=== PATIENT | female | born 1950 | race Caucasian/White ===

== ENCOUNTER → 2016-04-10 | Outpatient (CLI) | payer OTHER, MEDICARE ==
[~2016-04-10] MED LIST: GADOBUTROL 10 ML VIAL IVP ONE
[2016-04-10 08:55] LABS: CREATININE 0.9 mg/dL (0.6-1.0); GLOMERULAR FILTRATION RATE > 60
--- NOTE | 2016-04-10 18:28 | MR ---
MRI Cervical Spine (Without and With Contrast) History: Cervicalgia, neck pain, history of breast cancer, M54.2. Technique: Sagittal T1, T2 and axial T1, T2 MR sequences of the cervical spine without contrast. Post contrast sagittal and axial T1-weighted sequences obtained with the uneventful intravenous administra tion of 5 mL Gadavist contrast. Findings: No evidence of cervical compression fractures. No destructive osseous lesions of the cerv ical spine. No craniocervical stenosis. Cerebellar tonsils are in normal position. Cervical spinal c ord demonstrates normal signal without cord edema or myelomalacia. C2-C3: No disk herniation or stenosis. C3-C4: Severe left facet arthropathy and moderate right facet arthropathy with mild degenerative disk disease, minimal dorsal disk/osteophyte complex, and degenerative grade 1 anterolisthesis resulting in mild to moderate bilateral neural foraminal stenosis without central canal stenosis. C4-C5: Mild degenerative disk disease with dorsal disk/osteophyte complex, severe left facet arthropa thy, mild right facet arthropathy, dorsal disk/osteophyte complex and bilateral uncovertebral osteoph ytes, left greater than right, resulting in mild central canal stenosis, moderate to severe left neur al foraminal stenosis and mild to moderate right neural foraminal stenosis. C5-C6: Moderate degenerative disk disease with moderate loss of disk height, dorsal disk/osteophyte c omplex, bilateral uncovertebral osteophytes and moderate bilateral facet arthropathy, left greater th an right, resulting in moderate central canal stenosis with mild cord compression, and moderate to se filiberto bilateral neural foraminal stenosis. C6-C7: Moderate degenerative disk disease with dorsal disk/osteophyte complex and bilateral uncoverte bral osteophytes, resulting in mild central canal stenosis and mild to moderate bilateral neural fora sandra stenosis, left worse than right. C7-T1: Mild bilateral facet arthropathy resulting in mild to moderate bilateral neural foraminal sten osis without central canal stenosis. No enhancing lesions, diskitis, or osteomyelitis. No evidence of enhancing cervical spinal cord lesio ns or leptomeningeal carcinomatosis. No evidence of enhancing vertebral body masses or paraspinal mas ses Impression: 1. No evidence of enhancing metastasis to the cervical spine or cervical spinal cord. 2. Multilevel mild to moderate degenerative disk disease, worse at C5-C6 and C6-C7, and variable bila teral facet arthropathy, resulting in mild to moderate central canal stenosis at C5-C6, and multileve l variable bilateral neural foraminal stenosis, worst at C3-C4, C4-C5, and C5-C6. 3. C5-C6: Moderate central canal stenosis and mild cord compression, secondary to moderate degenerati ve disk disease, degenerative anterolisthesis, bilateral facet arthropathy, also resulting in moderat e to severe bilateral neural foraminal stenosis. 4. No cord edema, myelomalacia, or enhancing cord lesions.
== END ==
LOC: FIMAGING 07:57
PROVIDERS: ATTEND Physician Assistant
DX: M50.322 Other cervical disc degeneration at C5-C6 level (principal); M50.323 Other cervical disc degeneration at C6-C7 level; M48.02 Spinal stenosis, cervical region; M47.892 Other spondylosis, cervical region; M46.92 Unspecified inflammatory spondylopathy, cervical region; Z85.3 Personal history of malignant neoplasm of breast
CPT/HCPCS: 72156; A9585

== ENCOUNTER → 2017-01-08 | Outpatient (CLI) | payer OTHER, MEDICARE | LOC: FIMAGING 14:19 | PROVIDERS: ATTEND Internal Medicine Geriatric Medicine | DX: Z12.31 Encounter for screening mammogram for malignant neoplasm of breast (principal); Z85.3 Personal history of malignant neoplasm of breast | CPT/HCPCS: G0202-52 ==

== ENCOUNTER → 2017-01-16 | Outpatient (CLI) | payer OTHER, MEDICARE | LOC: FIMAGING 11:37 | PROVIDERS: ATTEND Internal Medicine Hematology & Oncology | DX: Z12.39 Encounter for other screening for malignant neoplasm of breast (principal); R92.0 Mammographic microcalcification found on diagnostic imaging of breast | CPT/HCPCS: G0206 ==

== ENCOUNTER → 2017-01-22 | Day surgery (SDC) | payer OTHER, MEDICARE ==
[~2017-01-22] MED LIST changes: +BUPIVACAINE 0.5% 10 ML SDV ONE; -GADOBUTROL 10 ML VIAL IVP ONE; +LIDOCAINE 1% 300 MG/30 ML SDV ONE; +THROMBIN (BOVINE) 5,000 UNIT VIAL TP ONE
== END | disposition home or self-care (01) ==
LOC: FIMAGING 07:06
PROVIDERS: ATTEND Internal Medicine Hematology & Oncology
PROC: 0HBU3ZX Excision of Left Breast, Percutaneous Approach, Diagnostic (ICD-10-PCS; principal; 2017-01-22)
DX: R92.8 Other abnormal and inconclusive findings on diagnostic imaging of breast (principal)
CPT/HCPCS: G0206

== ENCOUNTER → 2017-02-16 | Outpatient (CLI) | payer OTHER, MEDICARE | LOC: FIMAGING 08:38 | PROVIDERS: ATTEND Internal Medicine Geriatric Medicine | DX: Z13.820 Encounter for screening for osteoporosis (principal); M81.8 Other osteoporosis without current pathological fracture ==

== ENCOUNTER 2017-03-02 09:29 | Inpatient (IN) | payer OTHER, MEDICARE ==
[~2017-03-02 09:29] MED LIST changes: +ALBUTEROL 200 PUFFS/18 GM MDI IH PRN; -BUPIVACAINE 0.5% 10 ML SDV ONE; -LIDOCAINE 1% 300 MG/30 ML SDV ONE; -THROMBIN (BOVINE) 5,000 UNIT VIAL TP ONE; +VANCOMYCIN PHARMACY TO DOSE MISC ONE
[2017-03-02] MEDS: LR 1,000 ML IV SCH ×2 (10:38→20:19)
[2017-03-02] MEDS ORDERED: VANCOMYCIN 1 GM in D5W 250 ML IV ONE (11:00)
[2017-03-02] MEDS ORDERED: DEXAMETHASONE 4 MG/ML VIAL IVP ONE (11:00)
[2017-03-02] MEDS ORDERED: DEXAMETHASONE 4 MG/ML VIAL ONE ×2 (11:05→15:38)
[2017-03-02] MEDS ORDERED: GENTAMICIN SULFATE 80 MG/2 ML VIAL ONE ×2 (11:30→16:16)
[2017-03-02] MEDS ORDERED: METHYLENE BLUE 0.5% 50 MG/10 ML AMP ONE ×2 (11:30→15:06)
[2017-03-02] MEDS ORDERED: BACITRACIN ZINC 14.2 GM OINTTUBE TP ONE (11:31)
[2017-03-02] MEDS ORDERED: BACITRACIN 50,000 UNITS/10 ML SYR IRR ONE ×2 (11:31→16:16)
[2017-03-02] MEDS ORDERED: ceFAZolin 1 GM/5 ML SYR ONE (11:32)
[2017-03-02] MEDS ORDERED: FAMOTIDINE 20 MG/NACL 50 ML IV ONE (12:00)
[2017-03-02] MEDS ORDERED: MIDAZOLAM 2 MG/2 ML VIAL IVP ONE (14:38)
--- NOTE | 2017-03-02 14:41 | PDANEPAE ---
ANE History of Present Illness L mastectomy and recon ANE Past Medical History - Cardiovascular History Hx Hypertension: Yes Hx Arrhythmias: No Hx Chest Pain: No Hx Coronary Artery / Peripheral Vascular Disease: No Hx CHF / Valvular Disease: No Hx Palpitations: No Cardiovascular History Comment: PCP MONITORS BP - Pulmonary History Hx COPD: No Hx Asthma/Reactive Airway Disease: Yes Hx Recent Upper Respiratory Infection: No Hx Oxygen in Use at Home: No Hx Sleep Apnea: No Sleep Apnea Screening Result - Last Documented: Negative Pulmonary History Comment: ASTHMA- USES INHALER, INSTRUCTED PT TO BRING TO HOSPITAL - Neurologic History Hx Cerebrovascular Accident: No Hx Seizures: No Hx Dementia: No - Endocrine History Hx Diabetes: No - Renal History Hx Renal Disorders: No - Liver History Hx Hepatic Disorders: No - Neurological & Psychiatric Hx Hx Neurological and Psychiatric Disorders: No - Cancer History Hx Cancer: Yes Cancer History Comment: BREAST CA X2. SMALL MELANOMA 1988 - Congenital Disorder History Hx Congenital Disorders: No - GI History Hx Gastrointestinal Disorders: Yes Gastrointestinal History Comment: DIVERTICULITIS. HX OF COLECTOMY. REFLUX. TENDS TO BE MORE ON THE SIDE OF DIARRHEA THAN CONSTIPATION - Other Health History Other Health History: WEARS GLASSES - Chronic Pain History Chronic Pain: Yes (ARTHRITIS TO NECK) - Surgical History Prior Surgeries: 2011 TRIGGER THUMB SURGERY- RIGHT. 2010 BREAST RECONSTRUCTION , PORT REMOVED. RIGHT MASTECTOMY 2008. COLECTOMY AND ANTONETTE 2008. 1988. LATERAL RELEASE RIGHT KNEE 1978. 1968 DEVIATED SEPTUM. 1958 TONSILLECTOMY ANE Review of Systems Review of systems is: negative Review of Systems: - Exercise capacity Exercise capacity: >=4 METS METS (RN): 4 METS ANE Patient History - Allergies Allergies/Adverse Reactions: codeine [Codeine] Allergy (Intermediate, Verified 08/01/10 09:33) NAUSEA cephalexin [From Keflex] Allergy (Verified 02/05/17 15:26) Rash silver [From Tegaderm AG Mesh] Allergy (Verified 02/05/17 15:27) ITCHY RED RASH - Home Medications Home medications: home medication list seen and reviewed Home Medications: Albuterol [Ventolin Hfa Inhaler] 1 - 2 puffs IH Q4 PRN 02/05/17 [Last Taken 07:00] Ascorbic Acid [Vitamin C 500 mg (*)] 500 mg PO DAILY 02/05/17 [Last Taken ] Calcium Carb W/Vit D [Calcium Carb W/Vit D 500/200 (*)] 500 mg PO DAILY [Last Taken 02/16/17] Glucosam/Chondr/Collagn/Hyalur [Glucosamine & Chondroitin Cap] 2 each PO DAILY 02/05/17 [Last Taken 02/16/17] Herbals/Supplements -Info Only 1 ea PO DAILY 02/05/17 [Last Taken 02/16/17] Losartan Potassium [Cozaar 25 mg (*)] 25 mg PO HS 02/05/17 [Last Taken Unknown] [place]cadia-3 Fatty Acids [Fish Oil 1000 mg (*)] 1,000 mg PO DAILY 02/05/17 [Last Taken 02/16/17] Omeprazole Magnesium [Prilosec Otc] 20 mg PO DAILY 02/05/17 [Last Taken 07:00] Zinc Gluconate [Zinc Chelated 50mg (*)] 50 mg PO Q2D 02/05/17 [Last Taken ] - NPO status NPO Since - Liquids (Date): 03/02/17 NPO Since - Liquids (Time): 07:45 NPO Since - Solids (Date): 03/01/17 NPO Since - Solids (Time): 19:00 - Anes Hx Anes Hx: no prior problems - Smoking Hx Smoking Status: Never smoked - Family Anes Hx Family Anes Hx: none Family Hx Anesthesia Complications: NONE ANE Labs/Vital Signs - Vital Signs Blood Pressure: 152/86 Heart Rate: 64 Respiratory Rate: 16 O2 Sat (%): 93 Height: 162.56 cm Weight: 54.431 kg ANE Physical Exam - Airway Neck exam: FROM Mallampati Score: Class 1 Mouth exam: normal dental/mouth exam - Pulmonary Pulmonary: no respiratory distress - Cardiovascular Cardiovascular: regular rate and rhythym ANE Anesthesia Plan Anesthesia Plan: general endotracheal anesthesia
--- NOTE | 2017-03-02 15:20 | PDHPUP ---
History & Physical Update H&P update statement: This history and physical update is based on an assessment of the patient which was completed after admission or registration (within 24 hours), but prior to the surgery/procedure. H&P update: H&P reviewed & patient examined (delay in surgery due to Nuclear Medicine), no change in patient's condition since H&P completed
[2017-03-02] MEDS ORDERED: ONDANSETRON 4 MG/2 ML VIAL ONE (15:38)
[2017-03-02] MEDS ORDERED: HYDROmorphONE/DILAUDID 2 MG/ML INJ ONE (15:38)
[2017-03-02] MEDS ORDERED: fentaNYL 100 MCG/2 ML INJ ONE ×2 (15:38→18:47)
[2017-03-02] MEDS ORDERED: ROCURONIUM 50 MG/5 ML VIAL ONE ×2 (15:38→17:15)
[2017-03-02] MEDS ORDERED: LIDOCAINE 2% 100 MG/5 ML SYR ONE (15:38)
[2017-03-02] MEDS ORDERED: PROPOFOL 200 MG/20 ML VIAL ONE (15:38)
[2017-03-02] MEDS ORDERED: SUGAMMADEX SODIUM 200 MG/2 ML VIAL IVP ONE (15:38)
[2017-03-02] MEDS ORDERED: BUPIVACAINE 0.25% 30 ML SDV ONE (16:03)
--- NOTE | 2017-03-02 16:18 | POSTANESTH ---
Post Anesthetic Evaluation Cardiovascular Status: Normal, Stable, Similar to Pre-Op Cond Respiratory Status: Normal, Stable, Similar to Pre-op Cond. Level of Consciousness/Mental Status: Can Participate in Eval, Mildly Sleepy, Arousable Pain Control: Adequate, Prn Tx Ordered Nausea/Vomiting Control: Adequate, Prn Tx Ordered Complications Possibly Related to Anesthesia: None Noted
[2017-03-02] MEDS ORDERED: ONDANSETRON 4 MG/2 ML VIAL IVP PRN ×2 (17:21→17:47)
--- NOTE | 2017-03-02 17:21 | POSTOPPROG ---
Post Op Note Date of Operation: 03/02/17 Surgeon: Hamzah Brandon (, FACS) Stamp Pad Maker: Johnny Rose RN-FA Anesthesiologist: Joshua Aceves MD Anesthesia: GET(General Endotracheal) Pre-op Diagnosis: left breast cancer Post-op Diagnosis: same Procedure: left total mastectomy/sentinel node mapping and biopsy Inf/Abcess present in the surg proc area at time of surgery?: No Specimen(s): Breast Martin node x 1 Non-sentinel node x 2
[2017-03-02] MEDS ORDERED: LR 1,000 ML IV SCH (17:30)
[2017-03-02] MEDS ORDERED: ALBUTEROL 3 ML DEYVIAL IH PRN (17:47)
[2017-03-02] MEDS ORDERED: PROMETHAZINE HCL 25 MG/ML INJ IVP PRN (17:47)
[2017-03-02] MEDS ORDERED: LABETALOL HCL 5 MG/ML 20 ML MDV IVP PRN (17:47)
[2017-03-02] MEDS ORDERED: DEXAMETHASONE 4 MG/ML VIAL IVP PRN (17:47)
[2017-03-02] MEDS ORDERED: HYDROCODONE/APAP 5/325 TAB PO PRN (17:47)
[2017-03-02] MEDS ORDERED: HYDROmorphONE/DILAUDID 1 MG/ML INJ IVP PRN (17:47)
[2017-03-02] MEDS ORDERED: NALOXONE HCL 0.4 MG/ML INJ IVP PRN (17:47)
[2017-03-02] MEDS ORDERED: ACETAMINOPHEN 500 MG TAB PO PRN (17:47)
[2017-03-02] MEDS ORDERED: OXYCODONE/APAP 5/325 TAB PO PRN (17:47)
[2017-03-02] MEDS ORDERED: MEPERIDINE 25 MG/ML SYR IVP PRN (17:47)
[2017-03-02] MEDS ORDERED: PHENYLEPHRINE HCL 100 MCG/ML SYR ONE (18:02)
--- NOTE | 2017-03-02 18:22 | POSTOPPROG ---
Post Op Note Date of Operation: 03/02/17 Surgeon: Geoff Hi Client Account Manager: Charanjit Leggett Anesthesiologist: Joshua Austin Anesthesia: GET(General Endotracheal) Pre-op Diagnosis: Left breast cancer Post-op Diagnosis: Left breast cancer Indication: Left breast cancer Procedure: Left breast reconstruction with tissue expanders Inf/Abcess present in the surg proc area at time of surgery?: No EBL: Minimal (20cc) Total fluids administered: 1400cc Complications: none Drains: Wenceslao Painting
[2017-03-02] MEDS: fentaNYL 100 MCG/2 ML INJ IVP PRN ×2 (18:50→19:38)
[2017-03-02] MEDS ORDERED: HYDROCODONE/APAP 5/325 TAB ONE (19:08)
--- NOTE | 2017-03-02 19:24 | GOP ---
[f rep st] OPERATIVE REPORT DATE OF OPERATION: 03/02/2017 SURGEON: Hamzah Brandon MD, FACS TOLL LINEMAN: PATITO Sánchez ANESTHESIA: General endotracheal. ANESTHESIOLOGIST: Joshua Aceves MD PREOPERATIVE DIAGNOSIS: 1. Left breast cancer. 2. History of right breast cancer 2008, status post mastectomy with reconstruction. POSTOPERATIVE DIAGNOSIS: 1. Left breast cancer. 2. History of right breast cancer 2008, status post mastectomy with reconstruction. PROCEDURE PERFORMED: 1. Left total mastectomy. 2. [place] lymph node mapping and biopsy. FINDINGS: 1. [place] node submitted for frozen section with no evidence of malignancy. 2. Non-sentinel node submitted for permanent section. 3. Remainder of left breast submitted for permanent section. ESTIMATED BLOOD LOSS: For this portion of the procedure, 25 mL. DESCRIPTION OF PROCEDURE: After informed consent was obtained, the patient was brought to the operating room and placed under general anesthesia. Both arms were extended. All pressure points were carefully padded. The chest wall, neck , and upper abdomen were prepped from 1 side of the table to the other. Appropriate sterile draping was applied. A time-out was performed before proceeding. A left breast intercostal block was performed with 0.25% Marcaine infiltrating the inferior edge of the 4th, 5th, 6th, and 7th ribs with 5 cc in each location along the anterior border of the latissimus muscle. A transverse incision was then made encompassing the nipple-areolar complex in elliptical fashion with the scalpel. Subsequent dissection with cautery was used to separate the breast from the overlying skin and dissection was carried out medially to the sternal border, inferiorly to the inframammary fold, cephalad to the infraclavicular fossa, and laterally to the latissimus border. The breast was then from the underlying pectoralis using cautery dissection. Larger intercostal photo studio assistant vessels were ligated with 3-0 Vicryl ligatures and/or hemoclipped. As the breast was laterally off the pectoralis border, it was dissected posteriorly to the latissimus border, then cephalad to the axilla. The pectoralis fascia was included in the dissection and the pectoralis and serratus were spared. The deep axillary fascia was incised and the Neoprobe was brought onto the field and used to identify the sentinel node which displayed counts of greater than 1200 counts per minute. All other sentinel nodes showed counts well below this level and were not suspicious clinically. The sentinel node was isolated. Lymphovascular structures were hemoclipped and divided, and the node was removed from the field. This was submitted for frozen section. Two additional nodes in the axillary tail were isolated and submitted as non-sentinel nodes. The breast was then amputated where the tail of the breast joined the axillary fascia. Larger vessels were hemoclipped and divided. The specimen was removed from the field and tagged for orientation. The wound was irrigated. Hemostasis appeared secure. A moistened laparotomy sponge was placed over the wound. Dr. Hi then scrubbed in to perform immediate reconstruction. Subsequently, the sentinel node was reported as negative. The reconstruction wound closure will be dictated by Dr. Geoff Hi. COMPLICATIONS: None. /[id number]/MODL MTDD
--- NOTE | 2017-03-02 20:29 | GOP ---
[f rep st] OPERATIVE REPORT DATE OF OPERATION: 03/02/2017 SURGEON: Geoff Hi MD SENIOR WEB APPLICATIONS DEVELOPER: Charanjit Leggett, FINANCIAL SERVICE REPRESENTATIVE ANESTHESIA: General. ANESTHESIOLOGIST: Joshua Aceves MD PREOPERATIVE DIAGNOSIS: Left breast cancer. POSTOPERATIVE DIAGNOSIS: Left breast cancer. PROCEDURE PERFORMED: Insertion of left tissue jewel cupping machine operator and AlloDerm for breast reconstruction. FINDINGS: SPECIMENS: None. ESTIMATED BLOOD LOSS: 20. IV FLUIDS: 1400. COMPLICATIONS: None. CHRONIC DISEASE MANAGER: A 133MX-13-T, a 200 out of 500 fill. The serial number was [id number]. INDICATIONS: The patient is a pleasant 66-year-old female, previously with right breast cancer, who underwent right mastectomy and reconstruction by my partner, Dr. Chad Morales. Unfortunately, she had a new diagnosis on the left. She, therefore, underwent a skin-sparing mastectomy and wanted immediate reconstruction at the time of the mastectomy. DESCRIPTION OF PROCEDURE: The patient was met in the preoperative area, where the risks and benefits were discussed with her at length which included, but were not limited to, infection, bleeding, hematoma, seroma, partial or total mastectomy skin flap necrosis, asymmetry with the other side, the possible need for further revision surgeries, and injury to the jewel cupping machine operator causing explant of the jewel cupping machine operator. She was agreeable to this and, therefore, signed the operative consent. She was then brought into the operating room and prior to going to asleep, a time-out was performed, where all in the room agreed upon the site and the procedure to be performed. She was given 1 g of gentamicin for a perioperative antibiotic. A Boucher was not placed due to the length of the case. SCDs were placed for DVT prophylaxis. The mastectomy part will be dictated by my colleague, Dr. Hamzah Brandon. We began our part of the case on the left side. We examined the skin flaps and deemed them to be pink and viable. We washed out the area with copious amounts of sterile saline and confirmed hemostasis with electrocautery. We began by raising the pectoralis major muscles, finding the lateral border of the pectoralis major muscle, and dissecting that off the chest wall, taking care to coagulate any intercostal perforators with electrocautery. Once we dissected a smooth subpectoral pocket, the jewel cupping machine operator was then chosen. We chose a 133MX-13-T jewel cupping machine operator, with a base width of 13. We then put the jewel cupping machine operator in and traced out the footplate for accurate placement of the AlloDerm with methylene blue. A 20 x 12 thick piece of AlloDerm was then chosen. This was cut and contoured to the subpectoral pocket and sutured to the patient's inframammary fold, as well as the lateral chest wall, with a running 2-0 Vicryl suture and an interrupted 2 -0 PDS suture. The pocket was then washed out with copious amounts of sterile saline and then again with triple-antibiotic saline, and my library media assistant and I then changed our gloves. In the tissue jewel cupping machine operator, all of the air was taken out under closed sterile conditions, and this jewel cupping machine operator was then placed in the correct position in the subpectoral pocket. The pocket was then completely closed by suturing the superior border of the AlloDerm to the inferior border of the pectoralis major muscle with a running 2-0 Vicryl stitch. Two 15-Lao round TI drains were placed, one along the IMF and one within the axilla, and sutured to the skin with 2-0 silk sutures. One more time, hemostasis was confirmed, and the pocket was washed out with copious amounts of antibiotic saline. The skin was then closed temporarily with skin kay, and the jewel cupping machine operator was filled with 200 cc of methylene blue-infused sterile saline under closed sterile conditions. The skin was then closed with 3-0 Monocryl subdermal sutures and skin kay. The wound was then dressed with bacitracin, Xeroform , and fluffs. A surgical support bra was then placed. The patient was awoken and taken to the PACU in good condition. The counts were correct at the end of the case. There were no immediate complications. /[id number]/MODL MTDD
[2017-03-02] MEDS: CYCLOBENZAPRINE 10 MG TAB PO SCH (20:42)
[2017-03-02] MEDS ORDERED: LOSARTAN POTASSIUM 25 MG TAB PO SCH (21:00)
[2017-03-02] MEDS: CLINDAMYCIN 600 MG/DEXTROSE 50 ML IV SCH (23:04)
[2017-03-02] MEDS: HYDROmorphone HCL/NS/PF 0.4 MG/2 ML SYR IVP PRN (23:09)
[2017-03-03] MEDS: CLINDAMYCIN 600 MG/DEXTROSE 50 ML IV SCH ×2 (05:16→13:08)
[2017-03-03] MEDS: traMADol 50 MG TAB PO PRN ×2 (05:42→11:51)
[2017-03-03 07:55] VITALS: O2SAT 95
[2017-03-03] MEDS ORDERED: ENOXAPARIN 40 MG/0.4 ML SYR SC SCH (09:00)
[2017-03-03] MEDS: CYCLOBENZAPRINE 10 MG TAB PO SCH ×2 (09:55→15:21)
[2017-03-03 12:03] VITALS: BP 133/70; PULSE 72; RESP 17; TEMP 98.3
--- NOTE | 2017-03-03 12:17 | ASMTCMCOM ---
CM Note CM Note Notes: 03/03/2017 Case Management Note Case Management d/c needs are TBD. Awaiting PT evals for guidance on d/c poc. Case Management to follow. Date Signed: 03/03/2017 12:17 PM Electronically Signed By:Stephenie Puckett RN
[2017-03-03] MEDS: HYDROmorphone HCL/NS/PF 0.4 MG/2 ML SYR IVP PRN (13:04)
[2017-03-03] MEDS ORDERED: oxyCODONE IR 5 MG TAB PO PRN (13:58)
[2017-03-03] MEDS ORDERED: SENNOSIDES/DOCUSATE SODIUM TAB PO SCH (14:00)
--- NOTE | 2017-03-03 14:04 | SOAPPROG ---
SOAP Progress Note Assessment/Plan: Assessment:s/p left total mastectomy with sentinel node biopsy and immediate reconstruction doing well, but with less than ideal pain control. She has oxycodone at home from Dr. Hi and would like to try that, although , she does not remember ever taking it and is "allergic" to codeine Plan: We discussed a trial of oxycodone + stool softners anticipate discharge later today. 03/03/17 14:05 Subjective: c/o severe pain, bone bruising, like an elephant sat on her chest wants to try stronger pain medications Objective: Vital Signs Temp Pulse Resp BP Pulse Ox 36.8 C 72 17 133/70 H 95 03/03/17 12:01 03/03/17 12:01 03/03/17 12:01 03/03/17 12:01 03/03/17 12:01 03/02/17 03/03/17 03/04/17 05:59 05:59 05:59 Intake Total 2280 Output Total 1075 500 Balance 1205 -500 - Time Spent With Patient Time Spent With Patient: 20 minutes - Pending Discharge Pending Discharge Within 24 Hours: Yes Pending Discharge Date: 03/04/17 Pending Discharge Time: 11:00 Physical Exam - Physical Exam General Appearance: WD/WN, alert, no apparent distress Skin: other (mastectomy site uncomplicated) Neuro/Psych: alert, normal mood/affect, oriented x 3 ICD10 Worksheet Patient Problems: Problems Problem Status Onset Breast cancer, left breast Acute - ICD10 Problem Qualifiers (1) Breast cancer, left breast Qualifiers: Breast location: upper outer quadrant of breast Estrogen receptor status: positive Patient sex: female Qualified Code(s): C50.412 - Malignant neoplasm of upper-outer quadrant of left female breast; Z17.0 - Estrogen receptor positive status [ER+]; Z17.0 - Estrogen receptor positive status [ER+]
== END 2017-03-03 15:48 | disposition home or self-care (01) | DRG 581 ==
LOC: F3E 09:29 → F1N 12:07 → OBSVTOIN 17:52 → F1N 19:54
PROVIDERS: ADMIT Surgery; ATTEND Surgery
PROC: 0HHU0NZ Insertion of Tissue Expander into Left Breast, Open Approach (ICD-10-PCS; principal; 2017-03-02 12:00)
PROC: 07B40ZX Excision of Left Upper Extremity Lymphatic, Open Approach, Diagnostic (ICD-10-PCS; principal; 2017-03-02 12:00)
PROC: 0HTU0ZZ Resection of Left Breast, Open Approach (ICD-10-PCS; principal; 2017-03-02 12:00)
DX: C50.412 Malignant neoplasm of upper-outer quadrant of left female breast (principal); I10 Essential (primary) hypertension; M81.0 Age-related osteoporosis without current pathological fracture; J45.909 Unspecified asthma, uncomplicated; Z17.0 Estrogen receptor positive status [ER+]; Z85.3 Personal history of malignant neoplasm of breast; Z80.3 Family history of malignant neoplasm of breast
CPT/HCPCS: A9520; J1100; J1170; J1650; J2001; J2250; J2370; J2405; J2704; J3010; J3370; Q4116; Q9968

== ENCOUNTER → 2017-08-24 | Outpatient (CLI) | payer OTHER, MEDICARE | LOC: FIMAGING 08:48 | PROVIDERS: ATTEND Plastic Surgery | DX: N63.20 Unspecified lump in the left breast, unspecified quadrant (principal) ==